=== PATIENT | female | born 1970 | race Caucasian/White ===

== ENCOUNTER 2024-06-19 11:12 | Outpatient (CLI) | payer BC | END 2024-06-19 11:13 | disposition home or self-care (01) | LOC: CSHCT 11:12 | PROVIDERS: ATTEND Orthopaedic Surgery | DX: Z01.818 Encounter for other preprocedural examination (principal); M17.12 Unilateral primary osteoarthritis, left knee ==

== ENCOUNTER 2025-06-15 15:31 | Outpatient (CLI) | payer BC | END 2025-06-15 15:32 | disposition home or self-care (01) | LOC: CSHMAMMO 15:31 | PROVIDERS: ATTEND Physician Assistant | DX: Z12.31 Encounter for screening mammogram for malignant neoplasm of breast (principal); Z80.3 Family history of malignant neoplasm of breast | CPT/HCPCS: 77063; 77067 ==